=== PATIENT | male | born 1980 | race Caucasian/White ===

== ENCOUNTER 2022-10-08 10:49 | Outpatient (CLI) | payer OTHER | END 2022-10-08 15:16 | disposition home or self-care (01) | LOC: LAB 10:49 → RAD 10:49 → LAB 15:16 | DX: R05.9 Cough, unspecified (principal); R06.02 Shortness of breath ==

== ENCOUNTER 2023-02-26 19:44 | Emergency (ER) | payer OTHER ==
[~2023-02-26] VITALS: Ht 172.7 cm; Wt 83.9 kg
[2023-02-26] MEDS ORDERED: AMOX-CLAV 875-1 EACH PO (21:08)
== END 2023-02-26 21:49 | disposition home or self-care (01) ==
LOC: ER 19:44
DX: J03.90 Acute tonsillitis, unspecified (principal)